=== PATIENT | female | born 1990 | race Caucasian/White ===

== ENCOUNTER 2018-09-03 15:46 | Day surgery (SDC) | payer OTHER ==
[2018-09-03 16:35] VITALS: BP 116/70; TEMP 98.3; BMI 30.2
--- NOTE | 2018-09-03 16:56 | PDOC.LDHP ---
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 She was working in the ED and felt palpiations. Past HX SVT pre- but never an issue...HR now, high- normal (max was 80-110). No chest pain, no SOB, no TYLER. Few rare XTX and no sex in last 24 hours. No LOF,. no VB. States this did not fell like prior SVT episodes/ Review of Systems: complete ROS completed and as per HPI Current gestational age (weeks): 32 (6 days) Due date: 10/23/18 Dating criteria: last menstrual period Grav: 1 Para: 0 Current complications: other (past HX hypothyroidism but now self corrected with last TSH reportedly normal. No meds.) Abnormal US findings: No Current medications: pre-dayanna vitamins Previous surgical history: none Allergies/Adverse Reactions: Allergies Allergy/AdvReac Type Severity Reaction Status Date / Time Penicillins Allergy Unverified 09/03/18 16:53 Social history: none - Physical Exam Vital signs reviewed and normal: yes (115/78-122/80; pulse 90s average) General: NAD Heart: RRR Lungs: CTAB Abdomen: gravid Extremeties: no edema FHT: category 1 Jenn[place] contractions every: rare ctxs and irriability - Assessment Isolated tachycardia episode in ED...now seems to be ressolved. Tachycardia of ? Past HX hypothyroidsm...last TSH normal; uterine irritability - Plan Plan: observation in L&D, other (I have ordered: 1. 1 liter LR for conservative care 2. CBC, TSH 3. EKG 4. FFN and cervical length...if either abnormal, we will check cervix)
[2018-09-03] MEDS ORDERED: Lactated Ringer's 1,000 ML IV SCH (17:00)
--- NOTE | 2018-09-03 17:16 | PDOC.EVN ---
Event Note - Event Note Event Note: Coreyo CX length 3cm trans labial...FFN being collected
[2018-09-03 17:32] LABS: Mean Corpuscular HGB CONC 34.3 g/dL (32.0-36.0); Mean Corpuscular Hemoglobin 30.6 pg (27.0-31.0); Mean Corpuscular Volume 89.4 fL (78.0-98.0); Mean Platelet Volume 8.7 fL (7.4-10.4); Platelet Count 222 thou/uL (130-400); RBC Distribution Width 12.4 % (11.5-14.5); Red Blood Cell (RBC) Count 3.91 mill/uL (4.20-5.40); White Blood Cell (WBC) Count 13.8 thou/uL (4.8-10.8)
--- NOTE | 2018-09-03 17:54 | PDOC.EVN ---
Event Note - Event Note Event Note: EKG normal sinus
--- NOTE | 2018-09-03 17:56 | ULT ---
Obstetric sonogram Limited HISTORY: Evaluate cervical length. Third trimester gestation. FINDINGS: Transabdominal and translabial imaging. Cervix measured at 4.2 cm and is closed. Amniotic fluid decreased. A 1.7 cm pocket is documented. Heart motion at 128 bpm. IMPRESSION: Cervix is closed and 4.2 cm. Oligohydramnios.
[2018-09-03 18:22] LABS: Fetal Fibronectin Negative (Negative)
[2018-09-03 18:23] LABS: FFN Internal QC Analyzer PASS (PASS); FFN Internal QC Cassette PASS (PASS)
--- NOTE | 2018-09-03 18:34 | PDOC.EVN ---
Event Note - Event Note Event Note: FFN negative and TSH normal...ok for outpatient care. I have discussed recheck SDP (amniotic fluid) on Thursday...NST reactive.
--- NOTE | 2018-09-06 22:40 | EKG ---
Test Reason : Blood Pressure : / mmHG Vent. Rate : 078 BPM Atrial Rate : 078 BPM P-R Int : 120 ms QRS Dur : 088 ms QT Int : 386 ms P-R-T Axes : 035 028 048 degrees QTc Int : 440 ms Normal sinus rhythm with sinus arrhythmia Normal ECG No previous ECGs available Confirmed by Mukesh GALLEGO ([id number]) on 09/06/2018 10:40:28 PM Referred By: Confirmed By:Mukesh GALLEGO
== END 2018-09-03 18:33 | disposition home or self-care (01) ==
LOC: L&D/OP 15:46
PROVIDERS: ATTEND Advanced Practice Midwife
DX: O99.89 Other specified diseases and conditions complicating pregnancy, childbirth and the puerperium (principal); R00.0 Tachycardia, unspecified; Z3A.32 32 weeks gestation of pregnancy; Z79.899 Other long term (current) drug therapy; Z88.0 Allergy status to penicillin
CPT/HCPCS: 36415; 76815; 82731; 84443; 85027; 93005; 93010; 96360; 99283

== ENCOUNTER 2018-10-07 08:19 | Inpatient (IN) | payer OTHER ==
[2018-10-07 09:37] VITALS: BMI 30.6
[2018-10-07] MEDS ORDERED: HYDROcodone/Acetaminophen 5/325 mg Tablet PO PRN ×4 (10:13→16:10)
[2018-10-07] MEDS ORDERED: Lidocaine 1% (PF) 30 ML VIAL SC PRN (10:13)
[2018-10-07] MEDS ORDERED: Diphenoxylate HCl/Atropine Tablet PO PRN ×2 (10:13)
[2018-10-07] MEDS ORDERED: Ibuprofen 800 MG TAB PO PRN (10:13)
[2018-10-07] MEDS ORDERED: Lactated Ringer's 1,000 ML IV PRN (10:13)
[2018-10-07] MEDS ORDERED: NS / Oxytocin 40 units/1000ml 1,000 ML IV PRN (10:13)
[2018-10-07] MEDS ORDERED: Methylergonovine 0.2 MG/ML VIAL IM PRN ×2 (10:13→16:10)
[2018-10-07] MEDS ORDERED: Misoprostol 200 MCG TAB PR PRN (10:13)
[2018-10-07] MEDS ORDERED: Ondansetron PF 4 MG/2 ML Vial IVP PRN (10:13)
[2018-10-07] MEDS ORDERED: Promethazine HCl 25 MG/ML VIAL IM PRN (10:13)
[2018-10-07] MEDS ORDERED: Carboprost 250 MCG/ML AMP IM PRN (10:13)
--- NOTE | 2018-10-07 10:23 | PDOC.LDHP ---
Labor and Delivery H&P Chief complaint: loss of fluid HPI: Patient reports loss of clear fluid at 0445 and mild intermittent contractions starting around 0515. She arrived to the hospital around 0700 with contractions which were more consistent and stronger. Contractions are currently about every 3 mins. She is coping well, able to talk through them. Due date: 10/23/18 Dating criteria: last menstrual period Grav: 1 Para: 0 Past Medical History: Hypothyroidism Depression - tx with Zoloft Current medications: pre- vitamins Previous surgical history: appendectomy Allergies/Adverse Reactions: Allergies Allergy/AdvReac Type Severity Reaction Status Date / Time Penicillins Allergy Unverified 09/03/18 16:53 Social history: none - Physical Exam Vital signs reviewed and normal: yes General: NAD, breathing through contractions Lungs: CTAB Abdomen: gravid [place] contractions every: q3 - Vaginal Exam cm dilated: 2 Effacement: 100% Station: -2 - OB Labs Blood type: A RH: positive Antibody Screen: negative HIV: negative RPR: negative HEPSAg: negative 1 hour GCT: negative GBS: negative Urine drug screen: negative Rubella: immune Additional Labs: TSH WNML - Assessment L&D Assessment: term rupture in membranes - Plan Plan: admit to L&D (Low intervention protocols)
[2018-10-07] MEDS ORDERED: Ondansetron PF 4 MG/2 ML Vial ONE (10:59)
[2018-10-07 11:23] LABS: Hemoglobin 13.7 g/dL (12.0-16.0); Mean Corpuscular HGB CONC 34.5 g/dL (32.0-36.0); Mean Corpuscular Hemoglobin 30.2 pg (27.0-31.0); Mean Corpuscular Volume 87.4 fL (78.0-98.0); Mean Platelet Volume 10.6 fL (7.4-10.4); Platelet Count 199 thou/uL (130-400); RBC Distribution Width 12.9 % (11.5-14.5); Red Blood Cell (RBC) Count 4.54 mill/uL (4.20-5.40); White Blood Cell (WBC) Count 14.8 thou/uL (4.8-10.8)
[2018-10-07 12:13] LABS: HBSAg Index 0.33 S/CO (0-0.99); Hep B Surf Ag Non-Reactive S/CO (NonReactive); Syphilis Antibody Nonreactive (Nonreactive); Syphilis Antibody Index 0.03 S/CO (<1.00 Non-Reactive)
[2018-10-07] MEDS ORDERED: Measles/Mumps/Rubella 10 MCG/0.5 ML VIAL SC ONE (16:10)
[2018-10-07] MEDS ORDERED: Milk Of Magnesia 30 ML UDCUP PO PRN (16:10)
[2018-10-07] MEDS ORDERED: NS / Oxytocin 40 units/1000ml 1,000 ML IV SCH (16:10)
[2018-10-07] MEDS ORDERED: Bisacodyl 10 MG SUPP PR PRN (16:10)
[2018-10-07] MEDS ORDERED: Adacel (T-DAP) 0.5 ML SYRINGE IM ONE (16:10)
[2018-10-07] MEDS ORDERED: Benzocaine-Menthol 82.5 ML CAN TOP PRN (16:10)
[2018-10-07] MEDS ORDERED: Misoprostol 200 MCG TAB VAG PRN (16:30)
[2018-10-07] MEDS: Ferrous Sulfate 325 MG TAB PO SCH (16:38)
--- NOTE | 2018-10-07 17:08 | PDOC.OPDEL ---
OB Operative/Delivery Note Delivery Dr/Surgeon: Danna Moise CNM Pre-Delivery Diagnosis: active labor Procedure/Post Delivery Dx: spontaneous vaginal delivery Weeks gestation: 37 Anesthesia: none - Findings A Sex: male Weight: 7 lb 15 oz (3615gm) - 1 min: 8 - 5 min: 9 - Additional Findings/Plan Placenta delivered: spontaneous Repaired Obstetrical Laceration: none Estimated blood loss: 285 QBL Post delivery plan: routine recovery
[2018-10-07] MEDS: Ibuprofen 800 MG TAB PO SCH (21:26)
[2018-10-07] MEDS: Docusate Calcium (SURFAK) 240 MG CAP PO SCH (21:26)
[2018-10-08] MEDS: Ibuprofen 800 MG TAB PO SCH ×3 (05:27→21:48)
[2018-10-08] MEDS: Prenatal Vitamin 1 TAB PO SCH (09:09)
[2018-10-08] MEDS: Docusate Calcium (SURFAK) 240 MG CAP PO SCH ×2 (09:09→21:48)
[2018-10-08] MEDS: Ferrous Sulfate 325 MG TAB PO SCH ×2 (09:10→16:33)
[2018-10-09] MEDS: Ibuprofen 800 MG TAB PO SCH ×2 (05:32→13:14)
--- NOTE | 2018-10-09 08:13 | PDOC.PP ---
Post Progress Note Post Day #: 1 PO intake tolerated: yes Flatus: yes Ambulation: yes Vital Signs (12 hours) Temp Pulse Resp BP BP BP Pulse Ox 10/09/18 07:52 98.3 F 68 14 115/64 99 10/09/18 05:33 98.5 F 75 18 111/58 L 98 10/08/18 23:47 98.8 F 57 L 16 92/51 L 10/08/18 20:40 98.6 F 78 16 104/63 Weight Weight 184 lb - Physical Examination General: NAD Respiratory: non-labored breathing Abdominal: lochia (minimal) Extremities: negative homans (B) Skin: no rash Psychiatric: A&Ox3, normal affect Result Diagrams: 10/07/18 10:51 Additional Labs: Post Labs Blood Type A POSITIVE 10/07/18 10:51 Hep Bs Antigen Non-Reactive S/CO (NonReactive) 10/07/18 10:51 (1) (spontaneous vaginal delivery) Code(s): O80 - ENCOUNTER FOR FULL-TERM UNCOMPLICATED DELIVERY Status: Acute (2) 37 weeks gestation of Code(s): Z3A.37 - 37 WEEKS GESTATION OF Status: Acute - Assessment/Plan G1 now P1 s/p no lacerations with NML PPD 1 exam Plan: Routine care
[2018-10-09] MEDS: Ferrous Sulfate 325 MG TAB PO SCH (09:15)
[2018-10-09] MEDS: Prenatal Vitamin 1 TAB PO SCH (09:16)
[2018-10-09] MEDS: Docusate Calcium (SURFAK) 240 MG CAP PO SCH (09:16)
[2018-10-09 12:10] VITALS: BP 129/68; TEMP 98
== END 2018-10-09 16:59 | disposition home or self-care (01) | DRG 807 ==
LOC: L&D/OP 08:19 → L&D-LIB 09:36 → 3SE 16:31
PROVIDERS: ADMIT Obstetrics & Gynecology; ATTEND Obstetrics & Gynecology
PROC: 10E0XZZ Delivery of Products of Conception, External Approach (ICD-10-PCS; principal; 2018-10-07)
DX: O80 Encounter for full-term uncomplicated delivery (principal); Z37.0 Single live birth; Z3A.37 37 weeks gestation of pregnancy; Z88.0 Allergy status to penicillin
CPT/HCPCS: 36415; 85027; 86780; 86850; 86900; 86901; 87340; 99285; J2001; J2405

== ENCOUNTER 2020-06-29 11:00 | Outpatient (CLI) | payer BC ==
[2020-06-29 18:54] LABS: SARS-CoV-2 PCR by NAA Not Detected (NotDetected)
== END 2020-06-29 11:01 | disposition home or self-care (01) ==
LOC: LABBT 11:00
PROVIDERS: ATTEND Student in an Organized Health Care Education/Training Program
DX: Z20.822 Contact with and (suspected) exposure to COVID-19 (principal)
CPT/HCPCS: 87635; U0003; U0005